=== PATIENT | male | born 1980 | race American Indian/Alaskan Native ===

== ENCOUNTER 2017-01-16 08:23 | Emergency (ER) | payer SELFPAY ==
[2017-01-16 08:31] VITALS: BP 112/74
[2017-01-16] MEDS ORDERED: FUL-GLO OP ONE (09:52)
[2017-01-16] MEDS ORDERED: TETRACAINE 0.5% OU PRN (09:52)
--- NOTE | 2017-01-16 18:46 | Emergency Department Report ---
Entered by PAUL INTERIANO, acting as scribe for SHARDA ACKERMAN NP. ED Eye Problem HPI - General Chief complaint: Eye Problems Stated complaint: SWOLLEN EYE/BUMPS ON LID Time Seen by Provider: 01/16/17 09:50 Source: patient Mode of arrival: Ambulatory Limitations: No Limitations - History of Present Illness Initial comments: This a 36 y/o male, nontoxic, well nourished in appearance, no acute signs of distress with no significant PMHx presents with c/o right upper eyelid swelling that began 3 days ago. Rates severity a 0/10. Denies any right eye injury or trauma. Reports associated right eyelid itching, but he denies blurry vision, visual changes, pus, drainage, crusting, redness, eye pain, fever, chills, chest pain, SOB, THOMAS or dizziness, foreign body, numbness, tingling. 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 Notes Hx of similar symptoms and was diagnosed with a herpes simplex. Notes the doctors took a culture sample from eye, which came back positive for herpes. He was prescribed Acyclovir . Patient states these symptoms feel similar to his previous eyelid swelling episode. Notes he had small bumps on right upper eyelid on the first day of onset of symptoms. NKDA. Denies PMH. chief complaint: other (right upper eyelid swelling) Onset/Timin -: Gradual, days(s) Location: right eye Place: home If Injury: none Eye Symptoms: itching, other (swelling) Severity: mild Severity scale (0 -10): 0 Consistency: constant Context: other (possible infection from scratching right eye) Associated Symptoms: other (itching). denies: headache, neck pain, nausea/ vomiting, cough, rhinorrhea, fever, shortness of breath Treatments Prior to Arrival: none - Related Data Previous Rx's Medication Instructions Recorded Last Taken Type Acyclovir [Zovirax Cap] 400 mg PO TID 7 Days 01/16/17 Unknown Rx Erythromycin [Erythromycin Ophth 10 applic OP DAILY #1 tube 01/16/17 Unknown Rx Oint] Allergies Allergy/AdvReac Type Severity Reaction Status Date / Time No Known Allergies Allergy Unverified 01/16/17 08:28 ED Review of Systems Comment: All other systems reviewed and negative Constitutional: denies: chills, fever Eyes: other (right eye swelling with associated itching). denies: eye pain, eye discharge, vision change ENT: denies: ear pain, throat pain Respiratory: denies: cough, orthopnea, shortness of breath, SOB with exertion, SOB at rest, stridor, wheezing Cardiovascular: denies: chest pain, palpitations, dyspnea on exertion, orthopnea , edema, syncope Endocrine: no symptoms reported Gastrointestinal: denies: abdominal pain, nausea, vomiting, diarrhea Genitourinary: denies: urgency, dysuria Musculoskeletal: denies: back pain, joint swelling, arthralgia Skin: denies: rash, lesions Neurological: denies: headache, weakness, numbness, paresthesias Psychiatric: denies: anxiety, depression Hematological/Lymphatic: denies: easy bleeding, easy bruising ED Past Medical Hx - Past Medical History Previous Medical History?: No - Surgical History Past Surgical History?: No - Social History Smoking Status: Never Smoker Substance Use Type: None - Medications Home Medications: Home Medications Medication Instructions Recorded Confirmed Last Taken Type Acyclovir [Zovirax Cap] 400 mg PO TID 7 Days 01/16/17 Unknown Rx Erythromycin [Erythromycin Ophth 10 applic OP DAILY #1 tube 01/16/17 Unknown Rx Oint] ED Physical Exam - General Limitations: No Limitations General appearance: alert, in no apparent distress - Head Head exam: Present: atraumatic, normocephalic, normal inspection - Eye Eye exam: Present: normal appearance, PERRL, EOMI, other (right upper eyelid swelling with 0.5cm crusting present from scratching). Absent: scleral icterus , conjunctival injection, nystagmus, periorbital swelling, periorbital tenderness Pupils: Present: normal accommodation - Expanded Eye Exam Expanded Eyelids: Normal Inspection: Right, Swelling: Right (right upper eyelid swelling with 0.5cm crusting present from scratching) Pupils: Regular, Round: Right, Reactive: Right Sclera/Conjunctival: Normal Inspection: Right Anterior chamber: Normal Inspection: Right Visual acuity (R) = 20/: 15 Visual acuity (L) = 20/: 15 With correction: No - ENT ENT exam: Present: normal exam, normal orophraynx, mucous membranes moist, TM's normal bilaterally, normal external ear exam - Neck Neck exam: Present: normal inspection, full ROM. Absent: tenderness, meningismus, lymphadenopathy, thyromegaly - Respiratory Respiratory exam: Present: normal lung sounds bilaterally. Absent: respiratory distress, wheezes, rales, rhonchi, stridor, chest wall tenderness, accessory muscle use, decreased breath sounds, prolonged expiratory - Cardiovascular Cardiovascular Exam: Present: regular rate, normal rhythm, normal heart sounds. Absent: bradycardia, tachycardia, irregular rhythm, systolic murmur, diastolic murmur, rubs, gallop - GI/Abdominal GI/Abdominal exam: Present: soft, normal bowel sounds. Absent: distended, tenderness, guarding, rebound, rigid - Rectal Rectal exam: Present: deferred - Extremities Exam Extremities exam: Present: normal inspection, full ROM, normal capillary refill. Absent: tenderness, pedal edema, joint swelling, calf tenderness - Back Exam Back exam: Present: normal inspection, full ROM. Absent: tenderness, CVA tenderness (R), CVA tenderness (L), muscle spasm, paraspinal tenderness, vertebral tenderness, rash noted - Neurological Exam Neurological exam: Present: alert, oriented X3, CN II-XII intact, normal gait. Absent: abnormal gait, motor sensory deficit, reflexes normal - Psychiatric Psychiatric exam: Present: normal affect, normal mood - Skin Skin exam: Present: warm, dry, intact. Absent: rash - Other Other exam information: Marquez lamp, no foreign body or corneal abrasion noted. Normal corneal sensation. Negative dendritic lesions of the cornea ED Course Vital Signs 01/16/17 08:28 Temperature 98.4 F Pulse Rate 80 Blood Pressure 112/74 - Reevaluation(s) Reevaluation #1: 01/16/17 10:32 Patient is able to speak in full sentences with no signs of distress noted,. ED Medical Decision Making - Medical Decision Making Ed course: This is a 36-year-old male that presents with upper eyelid swelling Patient was examiend by myself. Marquez lamp, no foreign body or corneal abrasion noted. Normal corneal sensation. Negative dendritic lesions of the cornea. Patient will be treated with oral acyclovir at d/c due to patient stated had the same symptoms with positive herpes culture. Patient stated has been treated with acyclovir and symptoms subsided. Patient will also be treated for possible Bactria infection with blephritis with with azithromycin opth. Patient was instructed to follow-up with ophthalmology in 24 hours for a sentence such as blurriness, visual changes, drainage, or worsening symptoms return to emergency room as soon as possible. At time time of discharge, the patient does not seem toxic or ill in appearance. No acute signs of distress noted. Patient agrees to discharge treatment plan of care. No further questions noted by the patient. Patient was also instructed to use warm compressors as much as possible. ED Disposition Clinical Impression: Blepharitis Qualifiers: Blepharitis type: unspecified type Laterality: right Eyelid: upper Qualified Code(s): H01.001 - Unspecified blepharitis right upper eyelid Disposition: DC-01 TO HOME OR SELFCARE Is pt being admited?: No Does the pt Need Aspirin: No Condition: Stable Instructions: Acyclovir (By mouth), Erythromycin (Into the eye), Blepharitis ( ED) Additional Instructions: follow-up with ophthalmology in 24 hours for a sentence such as blurriness, visual changes, drainage, or worsening symptoms return to emergency room as soon as possible. Use warm compressors to the eye as much as possible Prescriptions: Acyclovir [Zovirax Cap] 400 mg PO TID 7 Days Erythromycin [Erythromycin Ophth Oint] 10 applic OP DAILY #1 tube Referrals: [facility] [Outside] - 3-[address] [facility] [Outside] - 3-5 Days MICAELA ALEJANDRE MD [Referring] - 24 Hours [facility], [Primary Care Provider] - 3-5 Days RICA CORREA MD [Staff Physician] - 24 Hours NANCY ORONA MD [Staff Physician] - 24 Hours Forms: Work/School Release Form(ED) This documentation as recorded by the LAISHA dukes JASMINE,accurately reflects the service I personally performed and the decisions made by ,SHARDA ACKERMAN, LAYO.
== END 2017-01-16 11:39 | disposition home or self-care (01) ==
LOC: ED 08:23
DX: H01.001 Unspecified blepharitis right upper eyelid (principal)
CPT/HCPCS: 99283